=== PATIENT | male | born 1965 | race Caucasian/White ===

== ENCOUNTER 2020-09-24 13:32 | Emergency (ER) | payer SELFPAY ==
--- NOTE | 2020-09-24 13:49 | EDM.PDOC ---
ED HPI GENERAL MEDICAL PROBLEM - General Chief Complaint: Chest Pain Stated Complaint: [facility] Time Seen by Provider: 09/24/20 13:32 - History of Present Illness INITIAL COMMENTS - FREE TEXT/NARRATIVE: 55-year-old male presents the emergency room with chest pain. He is brought in by EMS. Chest pain started around 1030 this morning after the patient ate a [place] pain started out his mid chest kind of a burning sensation reminded him of heartburn he took some acid reducers and this seemed to help a little bit. The pain intensified and extended into both shoulders and into the upper arms bilaterally. He has some numbness in his right forearm but this is chronic he has been told he had a pinched nerve in the past. The patient was brought in by EMS for they were concerned that he had a STEMI. At 1 point he had SVT they reported rates in the mid 200s then he briefly became unresponsive. This followed receiving a single nitro spray. Besides the nitro spray the patient received a milligram of IV morphine. Family history is significant for a brother that had heart bypass surgery however he had multiple medical problems including a kidney transplant. Other siblings have negative family history of parents have a negative family history. 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 The patient also has a significant smoking history smoking approximately 2 packs a day since 25 years of age, or for the last 30 years. Takes citalopram hydrochlorothiazide and losartan unsure of the doses he does not use aspirin on a regular basis. chest Pain Score (Numeric/FACES): 1 - Related Data Allergies Allergy/AdvReac Type Severity Reaction Status Date / Time No Known Allergies Allergy Verified 09/24/20 13:52 ED ROS GENERAL - Review of Systems Review Of Systems: See Below Constitutional: Reports: No Symptoms HEENT: Reports: No Symptoms Respiratory: Reports: No Symptoms Cardiovascular: Reports: Chest Pain, Lightheadedness Endocrine: Reports: No Symptoms GI/Abdominal: Reports: Other (Heartburn) : Reports: No Symptoms Musculoskeletal: Reports: No Symptoms Skin: Reports: No Symptoms Neurological: Reports: No Symptoms Psychiatric: Reports: No Symptoms Hematologic/Lymphatic: Reports: No Symptoms Immunologic: Reports: No Symptoms ED EXAM, GENERAL - Physical Exam Exam: See Below Exam Limited By: No Limitations General Appearance: Alert, No Apparent Distress Head: Atraumatic, Normocephalic Neck: Normal Inspection, Supple, Non-Tender, Full Range of Motion Respiratory/Chest: No Respiratory Distress, Lungs Clear, Normal Breath Sounds, Other (He had a few bibasilar crackles that cleared with deep breathing) Cardiovascular: Regular Rate, Rhythm, No Edema, No Murmur GI/Abdominal: Normal Bowel Sounds, Soft, Non-Tender Back Exam: Normal Inspection, Full Range of Motion. No: CVA Tenderness (L), CVA Tenderness (R) Extremities: Normal Inspection, Normal Range of Motion, Non-Tender Neurological: Alert, Oriented, Normal Cognition #1 Interpretation EKG Date: 09/24/20 Rhythm: NSR Rate (Beats/Min): 74 Guion: Normal P-Wave: Present QRS: Normal ST-T: Other (Nondiagnostic ST depression subtle with a subtle ST elevation in aVL) QT: Normal Comparison: NA - No Prior EKG #2 Interpretation EKG Date: 09/24/20 Rhythm: NSR Rate (Beats/Min): 64 Guion: Normal P-Wave: Present QRS: Normal ST-T: Other (Minimal ST elevation in aVL T waves are now fully inverted compared to prior) QT: Normal Comparison: Change From Previous EKG (Pleat T wave inversion from the initial EKG in lead aVL only less diffuse subtle ST changes) Course - Vital Signs Last Recorded V/S: Last Vital Signs Temp 37.2 C 09/24/20 13:45 Pulse 67 09/24/20 13:45 Resp 18 09/24/20 13:45 BP 129/83 09/24/20 13:45 Pulse Ox 92 L 09/24/20 13:45 - Orders/Labs/Meds Orders: Active Orders 24 hr Category Date Time Status EKG 12 Lead [EK] Stat Ther 09/24/20 13:34 Ordered Labs: Laboratory Tests 09/24/20 09/24/20 09/24/20 Range/Units 13:45 13:45 13:45 WBC 10.38 H (4.23-9.07) K/mm3 RBC 4.83 (4.63-6.08) M/mm3 Hgb 14.8 (13.7-17.5) gm/dl Hct 43.1 (40.1-51.0) % MCV 89.2 (79.0-92.2) fl MCH 30.6 (25.7-32.2) pg MCHC 34.3 (32.2-35.5) g/dl RDW Std Deviation 43.8 (35.1-43.9) fL Plt Count 181 (163-337) K/mm3 MPV 9.3 L (9.4-12.3) fl Neut % (Auto) 71.4 H (34.0-67.9) % Lymph % (Auto) 17.6 L (21.8-53.1) % [place] % (Auto) 9.7 (5.3-12.2) % Eos % (Auto) 0.8 (0.8-7.0) Baso % (Auto) 0.1 (0.1-1.2) % Neut # (Auto) 7.41 H (1.78-5.38) K/mm3 Lymph # (Auto) 1.83 (1.32-3.57) K/mm3 [place] # (Auto) 1.01 H (0.30-0.82) K/mm3 Eos # (Auto) 0.08 (0.04-0.54) K/mm3 Baso # (Auto) 0.01 (0.01-0.08) K/mm3 PT 10.4 (9.7-12.0) SECONDS INR 0.97 APTT 25.8 (21.7-31.4) SECONDS D-Dimer, Quantitative (0.19-0.50) mg/L Sodium 131 L (136-145) mEq/L Potassium 3.3 L (3.5-5.1) mEq/L Chloride 95 L (98-107) mEq/L Carbon Dioxide 26 (21-32) mEq/L Anion Gap 13.3 (5-15) BUN 17 (7-18) mg/dL Creatinine 1.0 (0.7-1.3) mg/dL Est Cr Clr Drug Dosing 76.20 mL/min Estimated GFR (MDRD) > 60 (>60) mL/min BUN/Creatinine Ratio 17.0 (14-18) Glucose 125 H (74-106) mg/dL Calcium 8.8 (8.5-10.1) mg/dL Magnesium 1.8 (1.8-2.4) mg/dl Total Bilirubin 0.8 (0.2-1.0) mg/dL AST 21 (15-37) U/L ALT 19 (16-63) U/L Alkaline Phosphatase 82 (46-116) U/L Troponin I 0.732 H* (0.00-0.056) ng/mL Total Protein 6.9 (6.4-8.2) g/dl Albumin 3.7 (3.4-5.0) g/dl Globulin 3.2 gm/dL Albumin/Globulin Ratio 1.2 (1-2) Lipase 105 (73-393) U/L SARS-CoV-2 RNA (LESLI) (NEGATIVE) 09/24/20 09/24/20 Range/Units 13:45 15:15 WBC (4.23-9.07) K/mm3 RBC (4.63-6.08) M/mm3 Hgb (13.7-17.5) gm/dl Hct (40.1-51.0) % MCV (79.0-92.2) fl MCH (25.7-32.2) pg MCHC (32.2-35.5) g/dl RDW Std Deviation (35.1-43.9) fL Plt Count (163-337) K/mm3 MPV (9.4-12.3) fl Neut % (Auto) (34.0-67.9) % Lymph % (Auto) (21.8-53.1) % [place] % (Auto) (5.3-12.2) % Eos % (Auto) (0.8-7.0) Baso % (Auto) (0.1-1.2) % Neut # (Auto) (1.78-5.38) K/mm3 Lymph # (Auto) (1.32-3.57) K/mm3 [place] # (Auto) (0.30-0.82) K/mm3 Eos # (Auto) (0.04-0.54) K/mm3 Baso # (Auto) (0.01-0.08) K/mm3 PT (9.7-12.0) SECONDS INR APTT (21.7-31.4) SECONDS D-Dimer, Quantitative 0.46 (0.19-0.50) mg/L Sodium (136-145) mEq/L Potassium (3.5-5.1) mEq/L Chloride (98-107) mEq/L Carbon Dioxide (21-32) mEq/L Anion Gap (5-15) BUN (7-18) mg/dL Creatinine (0.7-1.3) mg/dL Est Cr Clr Drug Dosing mL/min Estimated GFR (MDRD) (>60) mL/min BUN/Creatinine Ratio (14-18) Glucose (74-106) mg/dL Calcium (8.5-10.1) mg/dL Magnesium (1.8-2.4) mg/dl Total Bilirubin (0.2-1.0) mg/dL AST (15-37) U/L ALT (16-63) U/L Alkaline Phosphatase (46-116) U/L Troponin I (0.00-0.056) ng/mL Total Protein (6.4-8.2) g/dl Albumin (3.4-5.0) g/dl Globulin gm/dL Albumin/Globulin Ratio (1-2) Lipase (73-393) U/L SARS-CoV-2 RNA (LESLI) Negative (NEGATIVE) Meds: Medications Discontinued Medications Generic Name Dose Route Start Last Admin Trade Name Freq PRN Reason Stop Dose Admin Aspirin 324 mg 09/24/20 14:00 09/24/20 14:13 Aspirin 81 Mg Tab.Chew PO 09/24/20 14:01 324 mg ONETIME ONE Administration Heparin Sodium (Porcine) 4,000 units 09/24/20 14:58 09/24/20 15:23 Heparin Sodium 5,000 Units/Ml Vial IVPUSH 09/24/20 14:59 4,000 units .BOLUS ONE Administration Heparin Sodium/Dextrose 25,000 units in 500 mls @ 19.595 mls/hr 09/24/20 15:00 09/24/20 15:29 Heparin 25,000 Units In D5w 500 Ml IV 12 units/kg/hr TITRATE NOELLE 19.595 mls/hr Administration Protocol 12 UNITS/KG/HR Heparin Sodium/Dextrose Confirm 09/24/20 15:10 Heparin 25,000 Units In D5w 500 Ml Administered 09/24/20 15:11 Dose 500 mls @ as directed .ROUTE .STK-MED ONE Magnesium Oxide 400 mg 09/24/20 15:09 09/24/20 15:24 Magnesium Oxide 400 Mg Tab PO 09/24/20 15:10 400 mg ONETIME ONE Administration Potassium Chloride 40 meq 09/24/20 15:09 09/24/20 15:24 Potassium Chloride 20 Meq Tab.Er PO 09/24/20 15:10 40 meq ONETIME ONE Administration - Re-Assessments/Exams Free Text/Narrative Re-Assessment/Exam: 09/24/20 15:39 Patient has a concerning history his troponin did come back elevated at 0.732 Heparin was started. Case was discussed with on-call apprentice cook at [facility] Dr. Keita who wanted shredded filler cigar maker machine to review the situation. Dr. Spence reviewed EKG clinical history and recommended the patient come over as a NSTEMI. , the hospitalist kindly accepts the patient at 15:12. He is very helpful we did review the chest x-ray EKG and lab results with him. Departure - Departure Time of Disposition: 15:10 Disposition: DC/Tfer to Acute Hospital 02 Reason for Transfer *Q: Other Clinical Impression: NSTEMI (non-ST elevated myocardial infarction) Referrals: PCP,Not In Area [Primary Care Provider] - Forms: ED Department Discharge Sepsis Event Note (ED) - Focused Exam Vital Signs: Vital Signs Temp Pulse Resp BP Pulse Ox 09/24/20 13:45 37.2 C 67 18 129/83 92 L - My Orders Last 24 Hours: My Active Orders 09/24/20 13:34 EKG 12 Lead [EK] Stat - Assessment/Plan Last 24 Hours: My Active Orders 09/24/20 13:34 EKG 12 Lead [EK] Stat
[2020-09-24] MEDS ORDERED: Aspirin 81 MG Tab.Chew PO ONE (14:00)
--- NOTE | 2020-09-24 14:17 | CR ---
Chest: Portable view of the chest was obtained. Comparison: No prior chest imaging is available. Parenchymal density is seen off the left heart. Slight areas of adjacent parenchymal change is also seen next to this area. Lungs otherwise are clear. Heart size appears within normal limits for portable technique. Upper mediastinum is normal. Bony structures show nothing acute. Impression: 1. Slight parenchymal change within the left midlung with small parenchymal density off the left heart. Without old films to confirm, this is most likely due to chronic scarring. 2. Nothing acute is otherwise appreciated. Diagnostic code #3
[2020-09-24] MEDS ORDERED: Heparin Sodium 5,000 Units/ML Vial IVPUSH ONE (14:58)
[2020-09-24] MEDS ORDERED: Heparin Sodium/D5W 25,000 UNITS/500 ML BAG IV SCH (15:00)
[2020-09-24] MEDS ORDERED: Potassium Chloride 20 MEQ Tab.ER PO ONE (15:09)
[2020-09-24] MEDS ORDERED: Magnesium Oxide 400 MG Tab PO ONE (15:09)
[2020-09-24] MEDS ORDERED: Heparin Sodium/D5W 500 ML ONE (15:10)
== END 2020-09-24 16:39 ==
LOC: JD.ED 13:32
DX: I21.4 Non-ST elevation (NSTEMI) myocardial infarction (principal); Z20.822 Contact with and (suspected) exposure to COVID-19
CPT/HCPCS: 36415; 71045; 80053; 83690; 83735; 84484; 85025; 85379; 85610; 85730; 87635; 93005; 96365; 99285; A9270; J1644; 93010; U0002